=== PATIENT | female | born 1995 | race Caucasian/White ===

== ENCOUNTER 2017-02-20 10:48 | Emergency (ER) | payer OTHER ==
[~2017-02-20] VITALS: Ht 154.9 cm; Wt 72.3 kg
[~2017-02-20 10:48] MED LIST: DEPO-SUBQ104 MG/0.6 SC
[2017-02-20 13:40] VITALS: BP 116/70
== END 2017-02-20 13:40 | disposition home or self-care (01) ==
LOC: ED 10:48
DX: J45.901 Unspecified asthma with (acute) exacerbation (principal); R10.30 Lower abdominal pain, unspecified; R11.10 Vomiting, unspecified; Z90.49 Acquired absence of other specified parts of digestive tract